=== PATIENT | male | born 1950 | race Caucasian/White ===

== ENCOUNTER → 2018-04-06 | Day surgery (SDC) | payer OTHER ==
[~2018-04-06] MED LIST: LOSARTAN-HCTZ1 EACH PO
== END | disposition home or self-care (01) ==
LOC: ADM 04-04 12:00 → CIR.AMB 08:20
DX: K64.8 Other hemorrhoids (principal); K64.4 Residual hemorrhoidal skin tags

== ENCOUNTER 2018-04-07 12:47 | Emergency (ER) | payer OTHER ==
[~2018-04-07] VITALS: Ht 177.8 cm; Wt 74.8 kg
== END 2018-04-07 16:39 | disposition home or self-care (01) ==
LOC: ER 12:47
DX: R33.8 Other retention of urine (principal); Z98.890 Other specified postprocedural states

== ENCOUNTER 2018-04-09 11:01 | Emergency (ER) | payer OTHER ==
[~2018-04-09] VITALS: Ht 177.8 cm; Wt 74.8 kg
== END 2018-04-09 16:49 | disposition home or self-care (01) ==
LOC: ER 11:01
DX: G89.18 Other acute postprocedural pain (principal); K62.89 Other specified diseases of anus and rectum; K59.09 Other constipation; Z46.6 Encounter for fitting and adjustment of urinary device

== ENCOUNTER 2022-10-01 07:02 | Day surgery (SDC) | payer OTHER ==
[~2022-10-01 07:02] MED LIST changes: +CANDESARTAN CIL16 MG PO; +OMEPRAZO PO
[2022-10-01] MEDS ORDERED: MIRALAX17 GM PO (10:07)
[2022-10-01] MEDS ORDERED: TRAMADOL HCL50 MG PO (10:07)
[2022-10-01] MEDS ORDERED: TYLENOL ARTHRI650 MG PO (10:07)
== END 2022-10-01 16:50 | disposition home or self-care (01) ==
LOC: CIR.AMB 07:02
PROVIDERS: ATTEND Surgery
DX: K40.90 Unilateral inguinal hernia, without obstruction or gangrene, not specified as recurrent (principal); I10 Essential (primary) hypertension; Z20.822 Contact with and (suspected) exposure to COVID-19
CPT/HCPCS: 49650; C1781